=== PATIENT | female | born 1930 | race Caucasian/White ===

== ENCOUNTER → 2017-01-07 | Outpatient (CLI) | payer MEDICARE, OTHER ==
--- NOTE | 2017-01-07 10:40 | REPMRS ---
Patient History The patient states she has not had a clinical breast exam in over a year. Patient is postmenopausal. Family history of breast cancer in mother, breast cancer in maternal aunt at age 50 or over, and breast cancer in niece. Benign cyst aspiration of the left breast, 2004. Benign lumpectomy of the right breast, 1976. Digital Woman Screen Mammo: January 07, 2017 - Exam #: [id number] Bilateral CC and MLO view(s) were taken. Technologist: Lucy Dale, Technologist Prior study comparison: December 26, 2015, digital woman screen mammo performed at [facility]. December 22, 2014, digital woman screen mammo performed at [facility]. December 21, 2013, digital woman screen mammo performed at [facility]. FINDINGS: There are scattered fibroglandular densities. There is a moderate amount of residual fibroglandular tissue which is fairly symmetric. There is no interval development of dominant mass, architectural distortion, or clustered microcalcification typical of malignancy. There has been no change in the appearance of the mammogram from the prior studies. ASSESSMENT: BI-RADS/ACR category 1 mammogram. Negative. Recommendation Routine screening mammogram of both breasts in 1 year (for women over age 40). This mammogram was interpreted with the aid of an FDA-approved computer-aided dectection system. Electronically Signed By: Seth Chang MD 01/07/17 [id number]
--- NOTE | 2017-01-08 09:24 | DEXA ---
AP SPINE L1 - L4 1.062 -1.1 1.4 LT FEMUR TOTAL 0.737 -2.1 0.5 RT FEMUR TOTAL 0.708 -2.4 0.3 TOTAL BODY TOTAL OTHER DUAL FEMUR FRAX* ASSESSMENT Risk factors: Family history (parent hip fracture). History of fracture (adult). The glucocorticoids (chronic). 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 The density of the spine has decreased 3.9% since the initial exam on 2000. The spine density has decreased 2.9% since the most recent exam on 12/22/2014. The density of the left hip has decreased 9.9% since the initial exam on 2000. The density of the left hip has decreased 4.9% since the most recent exam on . The density of the right hip has decreased 10.5% since the initial exam on 05/19. The density of the right hip has decreased 4.5% since the most recent exam on . FOLLOW-UP: Recommendation for the next bone density exam: 2 years. WILLIAN
== END ==
LOC: M WHC 09:47
PROVIDERS: ATTEND Physician Assistant Medical
DX: Z12.31 Encounter for screening mammogram for malignant neoplasm of breast (principal); Z80.3 Family history of malignant neoplasm of breast; Z86.000 Personal history of in-situ neoplasm of breast; M81.0 Age-related osteoporosis without current pathological fracture
CPT/HCPCS: 77080; G0202

== ENCOUNTER → 2017-11-26 | Outpatient (REF) | payer MEDICARE, OTHER ==
[2017-11-26 13:50] LABS: IMMUNOGLOBULIN G 805 MG/DL (681-1648); IMMUNOGLOBULIN M 76.7 MG/DL (40-230); TOTAL PROTEIN 7.2 GM/DL (6.4-8.2)
[2017-11-26 13:53] LABS: TOTAL PROTEIN,RANDOM URINE 6.6 MG/DL (0.0-12.0); URINE TOTAL PROTEIN 6.6 MG/DL (0-12)
[2017-11-28 00:06] LABS: FREE KAPPA LIGHT CHAINS SERUM 20.8 mg/L (3.3-19.4); KAPPA/LAMBDA RATIO SERUM 1.16 (0.26-1.65)
[2017-11-28 11:27] LABS: ALBUMIN 4.02 GM/DL (3.29-5.55); ALBUMIN % 55.8 % (55.8-66.1); ALPHA-1-GLOBULIN % 4.2 % (2.9-4.9); ALPHA-2-GLOBULINS 0.99 GM/DL (0.42-0.99); ALPHA-2-GLOBULINS % 13.8 % (7.1-11.8); BETA-1-GLOBULINS 0.48 GM/DL (0.28-0.60); BETA-1-GLOBULINS % 6.7 % (4.7-7.2); BETA-2-GLOBULINS 0.46 GM/DL (0.19-0.55); BETA-2-GLOBULINS % 6.4 % (3.2-6.5); GAMMA GLOBULIN % 13.1 % (11.1-18.8); GAMMA GLOBULINS 0.94 GM/DL (0.65-1.58)
[2017-11-28 14:38] LABS: UPEP INTERPRETATION NO M-SPIKE NOTED; URINE VOLUME RANDOM ML
[2017-11-28 14:50] LABS: IMMUNOTYPE URINE LAMBDA ABNORMAL (NORMAL)
== END ==
LOC: M LAB REF 12:53
DX: C90.00 Multiple myeloma not having achieved remission (principal)
CPT/HCPCS: 84165

== ENCOUNTER → 2018-01-13 | Outpatient (CLI) | payer MEDICARE, OTHER | LOC: M WHC 12:43 | DX: M81.0 Age-related osteoporosis without current pathological fracture (principal); Z12.31 Encounter for screening mammogram for malignant neoplasm of breast; Z78.0 Asymptomatic menopausal state; Z80.3 Family history of malignant neoplasm of breast | CPT/HCPCS: 77067 ==

== ENCOUNTER → 2019-01-14 | Outpatient (CLI) | payer MEDICARE, OTHER ==
--- NOTE | 2019-01-14 16:53 | REPMRS ---
Patient History The patient states she has not had a clinical breast exam in over a year. Family history of breast cancer in mother, breast cancer at age 50 or over in maternal aunt, breast cancer in niece. Benign cyst aspiration of the left breast, 2004. Benign lumpectomy of the right breast, 1976. No Hormone Replacement Therapy Digital Woman Screen Mammo: January 14, 2019 - Exam #: [id number] Bilateral CC and MLO view(s) were taken. Technologist: Lucy Dale, Technologist Prior study comparison: January 13, 2018, bilateral digital woman screen mammo performed at [facility]. January 07, 2017, digital woman screen mammo performed at [facility]. December 26, 2015, digital woman screen mammo performed at [facility]. FINDINGS: The breast tissue is heterogeneously dense. This may lower the sensitivity of mammography. There is a moderate amount of heterogeneously dense fibroglandular tissue which is fairly symmetric. There is no interval development of dominant mass, architectural distortion, or clustered microcalcification typical of malignancy. There has been no change in the appearance of the mammogram from the prior studies. 3-D tomosynthesis shows no additional findings. Assessment: BI-RADS/ACR category 1 mammogram. Negative Mammogram. Recommendation Routine screening mammogram of both breasts in 1 year (for women over age 40). This mammogram was interpreted with the aid of an FDA-approved computer-aided dectection system. Electronically Signed By: Seth Chang MD 01/14/19 [id number]
== END ==
LOC: M WHC 12:58
PROVIDERS: ATTEND Physician Assistant Medical
DX: Z12.31 Encounter for screening mammogram for malignant neoplasm of breast (principal); Z80.3 Family history of malignant neoplasm of breast; Z86.018 Personal history of other benign neoplasm

== ENCOUNTER → 2020-02-03 | Outpatient (CLI) | payer MEDICARE, OTHER ==
--- NOTE | 2020-02-03 13:09 | REPMRS ---
Patient History The patient states she has not had a clinical breast exam in over a year. Family history of breast cancer in mother, breast cancer at age 50 or over in maternal aunt, breast cancer in niece. Benign cyst aspiration of the left breast, 2004. Benign lumpectomy of the right breast, 1976. No Hormone Replacement Therapy Digital Woman Screen Mammo: February 03, 2020 - Exam #: [id number] Bilateral CC and MLO view(s) were taken. Technologist: Radha Seo, Technologist Prior study comparison: January 14, 2019, bilateral digital woman screen mammo performed at [facility]. January 13, 2018, bilateral digital woman screen mammo performed at [facility]. January 07, 2017, digital woman screen mammo performed at [facility]. FINDINGS: The breast tissue is heterogeneously dense. This may lower the sensitivity of mammography. The Volpara volumetric breast density category is: C. There is a moderate amount of heterogeneously dense fibroglandular tissue which is fairly symmetric. There is no interval development of dominant mass, architectural distortion, or grouped microcalcification typical of malignancy. There has been no change in the appearance of the mammogram from the prior studies. 3-D tomosynthesis shows no additional findings. Assessment: BI-RADS/ACR category 1 mammogram. Negative Mammogram. Recommendation Routine screening mammogram of both breasts in 1 year (for women over age 40). This mammogram was interpreted with the aid of an FDA-approved computer-aided dectection system. Electronically Signed By: Seth Chang MD 02/03/20 [id number]
== END ==
LOC: M WHC 12:11
PROVIDERS: ATTEND Physician Assistant Medical
DX: Z12.31 Encounter for screening mammogram for malignant neoplasm of breast (principal); Z80.3 Family history of malignant neoplasm of breast